=== PATIENT | male | born 1975 | race Caucasian/White ===

== ENCOUNTER 2019-01-28 03:44 | Observation (INO) | payer OTHER ==
[~2019-01-28] VITALS: Ht 188 cm; Wt 96.2 kg
[2019-01-28] MEDS ORDERED: IV NORMAL SALINE 1,000ML 1,000 ML IV SCH ×2 (03:58→06:00)
[2019-01-28] MEDS ORDERED: diphenhydrAMINE 50 MG/ML VIAL IVP ONE (04:00)
[2019-01-28] MEDS ORDERED: METOCLOPRAMIDE HCL 10 MG/2 ML VIAL. IV ONE (04:00)
[2019-01-28] MEDS ORDERED: MORPHINE SULFATE 4 MG/ML DISP.SYRIN. IV/SQ PRN (04:00)
[2019-01-28 04:18] LABS: BASO # 0.1 x10^3/uL (0.0-0.2); BASO % 1 % (0-3); EOS # 0.1 x10^3/uL (0.0-0.7); EOS % 1 % (0-3); HEMATOCRIT 47.3 % (39.0-53.0); HEMOGLOBIN 16.6 g/dL (13.0-17.5); LYMPH # 1.7 x10^3/uL (1.0-4.8); LYMPH % 17 % (24-48); MEAN CORPUSCULAR HEMOGLOBIN 30 pg (25-35); MEAN CORPUSCULAR HGB CONC 35 g/dL (31-37); MEAN CORPUSCULAR VOLUME 86 fL (79-100); MONO # 0.7 x10^3/uL (0.0-1.1); MONO % 7 % (0-9); NEUT # 7.8 x10^3uL (1.8-7.7); NEUT % 75 % (31-73); PLATELET COUNT 269 x10^3/uL (140-400); RED BLOOD COUNT 5.52 x10^6/uL (4.30-5.70); RED CELL DISTRIBUTION WIDTH 14.2 % (11.5-14.5); WHITE BLOOD COUNT 10.4 x10^3/uL (4.0-11.0)
[2019-01-28 04:38] LABS: ALBUMIN 4.2 g/dL (3.4-5.0); ALBUMIN/GLOBULIN RATIO 1.1 (1.0-1.7); CALCIUM 9.2 mg/dL (8.5-10.1); CREATININE 0.9 mg/dL (0.7-1.3); GFR 92.1; POTASSIUM 3.2 mmol/L (3.5-5.1); TOTAL BILIRUBIN 0.5 mg/dL (0.2-1.0); TOTAL PROTEIN 8.1 g/dL (6.4-8.2)
[2019-01-28 04:52] LABS: BACTERIA,URINE 0 /HPF (0-FEW); BILIRUBIN,URINE NEG (NEG); CLARITY,URINE CLEAR; COLOR,URINE YELLOW; GLUCOSE,URINE NEG (NEG); NITRITE,URINE NEG (NEG); RBC,URINE 0 /HPF (0-2); UROBILINOGEN,URINE 0.2 mg/dL (0.2 mg/dL)
[2019-01-28] MEDS ORDERED: IOHEXOL 300 MG/ML 75 ML VIAL. IV ONE (05:15)
[2019-01-28] MEDS ORDERED: CONTRAST GIVEN MC PRN (05:15)
--- NOTE | 2019-01-28 05:34 | PHYS DOC ---
Past History Past Medical History: Anxiety, Arthritis, Fibromyalgia, Other Additional Smoking Information: pt states he "Vapes" and smokes marijuana. Alcohol Use: Heavy Additional Alcohol Information: drinks beer daily Drug Use: Benzodiazepine, Marijuana Adult General Chief Complaint Chief Complaint: NAUSEA/VOMITING/DIARRHEA HPI HPI 43-year-old male who presents with complaint of abdominal pain with nausea and vomiting. Patient states that symptoms have been present for the last 4 days. He states that he has not been able to keep anything down despite prescribed medications. Patient was seen at the [facility] days ago and he was prescribed Zofran , Carafate and Prilosec. Patient states that he is not able to keep any of the medication down despite taking nausea medication. He rates the pain in his abdomen at an 8 out of 10 and describes it as crampy. He states that he does not recall the last time he had a bowel movement. He states that he is passing a small amount of gas but not very frequently. He denies any history of abdominal surgeries. Patient states that symptoms are worsened if he tries to eat or drink anything. He states that nothing improves his symptoms. Review of Systems Review of Systems Constitutional: Denies fever or chills [] Respiratory: Denies cough or shortness of breath [] Cardiovascular: No additional information not addressed in HPI [] GI: Complains of abdominal pain with nausea and vomiting. Denies diarrhea [] Integument: Denies rash or skin lesions [] Neurologic: Denies headache, focal weakness or sensory changes [] All other systems were reviewed and found to be within normal limits, except as documented in this note. Current Medications Current Medications Current Medications Medications (Trade) Dose Ordered Sig/Paula Start Time Stop Time Status Last Admin Dose Admin Diphenhydramine HCl (Benadryl) 25 mg 1X ONCE 01/28/19 04:00 01/28/19 04:41 DC 01/28/19 04:08 25 MG Info (Do NOT chart on this entry -- for MONITORING) 1 each PRN DAILY PRN 01/28/19 05:15 01/30/19 05:14 Iohexol (Omnipaque 300 Mg/ml) 75 ml 1X ONCE 01/28/19 05:15 01/28/19 05:16 DC 01/28/19 05:15 75 ML Metoclopramide HCl (Reglan Vial) 10 mg 1X ONCE 01/28/19 04:00 4/22/19 04:41 DC 01/28/19 04:08 10 MG Morphine Sulfate (Morphine 4mg Syringe) 4 mg PRN Q15MIN PRN 01/28/19 04:00 01/29/19 03:59 01/28/19 04:09 4 MG Sodium Chloride 1,000 ml @ 1,000 mls/hr Q1H 01/28/19 03:58 01/28/19 04:57 DC 01/28/19 04:05 1,000 MLS/HR Allergies Allergies Allergies Coded Allergies Type Severity Reaction Last Updated Verified No Known Drug Allergies 01/28/19 No Physical Exam Physical Exam Constitutional: Well developed, well nourished, no acute distress, non-toxic appearance. [] HENT: Normocephalic, atraumatic, bilateral external ears normal, oropharynx moist, no oral exudates, nose normal. [] Eyes: PERRLA, EOMI, conjunctiva normal, no discharge. [] Neck: Normal range of motion, no tenderness, supple, no stridor. [] Cardiovascular:Heart rate regular rhythm, no murmur [] Lungs & Thorax: Bilateral breath sounds clear to auscultation [] Abdomen: Bowel sounds normal, soft with diffuse tenderness. [] Skin: Warm, dry, no erythema, no rash. [] Extremities: No tenderness, no cyanosis, no clubbing, ROM intact, no edema. [] Neurologic: Alert and oriented X 3, no focal deficits noted. [] Current Patient Data Vital Signs Vital Signs Date Time Temp Pulse Resp B/P (MAP) Pulse Ox O2 Delivery O2 Flow Rate FiO2 01/28/19 04:09 18 98 Room Air 01/28/19 03:53 98.2 88 Lab Results Laboratory Tests Test 01/28/19 04:00 01/28/19 04:25 White Blood Count 10.4 x10^3/uL (4.0-11.0) Red Blood Count 5.52 x10^6/uL (4.30-5.70) Hemoglobin 16.6 g/dL (13.0-17.5) Hematocrit 47.3 % (39.0-53.0) Mean Corpuscular Volume 86 fL (79-100) Mean Corpuscular Hemoglobin 30 pg (25-35) Mean Corpuscular Hemoglobin Concent 35 g/dL (31-37) Red Cell Distribution Width 14.2 % (11.5-14.5) Platelet Count 269 x10^3/uL (140-400) Neutrophils (%) (Auto) 75 % (31-73) H Lymphocytes (%) (Auto) 17 % (24-48) L Monocytes (%) (Auto) 7 % (0-9) Eosinophils (%) (Auto) 1 % (0-3) Basophils (%) (Auto) 1 % (0-3) Neutrophils # (Auto) 7.8 x10^3uL (1.8-7.7) H Lymphocytes # (Auto) 1.7 x10^3/uL (1.0-4.8) Monocytes # (Auto) 0.7 x10^3/uL (0.0-1.1) Eosinophils # (Auto) 0.1 x10^3/uL (0.0-0.7) Basophils # (Auto) 0.1 x10^3/uL (0.0-0.2) Sodium Level 136 mmol/L (136-145) Potassium Level 3.2 mmol/L (3.5-5.1) L Chloride Level 96 mmol/L (98-107) L Carbon Dioxide Level 24 mmol/L (21-32) Anion Gap 16 (6-14) H Blood Urea Nitrogen 14 mg/dL (8-26) Creatinine 0.9 mg/dL (0.7-1.3) Estimated GFR (Cockcroft-Gault) 92.1 BUN/Creatinine Ratio 16 (6-20) Glucose Level 103 mg/dL (70-99) H Calcium Level 9.2 mg/dL (8.5-10.1) Total Bilirubin 0.5 mg/dL (0.2-1.0) Aspartate Amino Transferase (AST) 14 U/L (15-37) L Alanine Aminotransferase (ALT) 22 U/L (16-63) Alkaline Phosphatase 73 U/L (46-116) Total Protein 8.1 g/dL (6.4-8.2) Albumin 4.2 g/dL (3.4-5.0) Albumin/Globulin Ratio 1.1 (1.0-1.7) Lipase 229 U/L (73-393) Urine Collection Type Unknown Urine Color Yellow Urine Clarity Clear Urine pH 6.0 Urine Specific [place] 1.020 Urine Protein 30 mg/dl (NEG-TRACE) Urine Glucose (UA) Neg mg/dL (NEG) Urine Ketones (Stick) >=160 mg/dL (NEG) Urine Blood Neg (NEG) Urine Nitrite Neg (NEG) Urine Bilirubin Neg (NEG) Urine Urobilinogen Dipstick 0.2 mg/dL (0.2 mg/dL) Urine Leukocyte Esterase Neg (NEG) Urine RBC 0 /HPF (0-2) Urine WBC 1-4 /HPF (0-4) Urine Squamous Epithelial Cells None /LPF Urine Bacteria 0 /HPF (0-FEW) Urine Mucus Slight /LPF EKG EKG [] Radiology/Procedures Radiology/Procedures [] Course & Med Decision Making Course & Med Decision Making Pertinent Labs and Imaging studies reviewed. (See chart for details) [] Dragon Disclaimer Dragon Disclaimer This electronic medical record was generated, in whole or in part, using a voice recognition dictation system. Departure Departure: Impression: Primary Impression: Intractable vomiting Additional Impression: Generalized abdominal pain Disposition: ADMITTED INPATIENT Admitting Physician: Wong Sevilla Condition: IMPROVED Referrals: SHYLA COLBERT MD (PCP) Problem Qualifiers Primary Impression: Intractable vomiting Vomiting type: unspecified Nausea presence: with nausea Qualified Codes: R11.2 - Nausea with vomiting, unspecified AYLIN BENZ Jr. DO Jan 28, 2019 05:34
[2019-01-28] MEDS ORDERED: ONDANSETRON PF 4 MG/2 ML VIAL. IV PRN (06:00)
[2019-01-28] MEDS ORDERED: MORPHINE SULFATE 4 MG/ML DISP.SYRIN. IV PRN (06:00)
[2019-01-28] MEDS ORDERED: ONDANSETRON PF 4 MG/2 ML VIAL. IV ONE (06:00)
--- NOTE | 2019-01-28 06:04 | RAD ---
INDICATION: N/V, DIFFUSE ABDOMINAL PAIN
GAVE OMNI 300 75ML IV
HX: GERD COMPARISON: None. TECHNIQUE: Axial CT images obtained through the abdomen and pelvis with contrast. One or more of the following individualized dose reduction techniques were utilized for this examination: 1. Automated exposure control; 2. Adjustment of the mA and/or kV according to patient size; 3. Use of iterative reconstruction technique. FINDINGS: Abdominal aorta is not aneurysmal. Scattered calcified plaque. Small fat-containing umbilical hernia. Small fat-containing left inguinal hernia. No worrisome hepatic mass. No peripancreatic fluid collection. Spleen unremarkable. Urinary bladder is partially distended at time of exam. Mildly prominent bilateral extrarenal pelvis without radiopaque obstructive ureter stone. Prostate calcification. No periappendiceal inflammation. No dilated loops of bowel to suggest obstruction. There is some degenerative changes of the spine. IMPRESSION: 1. No evidence of bowel obstruction or appendicitis. Electronically signed by: Noble Jacome MD (01/28/2019 6:01 AM) [facility]
[2019-01-28 08:24] VITALS: BP 153/113
[2019-01-28] MEDS ORDERED: TRAZ-86 PO (10:22)
[2019-01-28] MEDS ORDERED: PREG100C PO (10:22)
[2019-01-28] MEDS ORDERED: OMEP40CA5 PO (10:22)
[2019-01-28] MEDS ORDERED: HYDR25TA PO (10:22)
[2019-01-28] MEDS ORDERED: CHOL10003 PO (10:22)
[2019-01-28] MEDS ORDERED: ACET500T68 PO (10:22)
[2019-01-28] MEDS ORDERED: LAMO150T2 PO (10:22)
[2019-01-28] MEDS ORDERED: FERR325T14 PO (10:22)
[2019-01-28] MEDS ORDERED: ATOR40TA59 PO (10:22)
[2019-01-28] MEDS ORDERED: CETI10TA16 PO (10:22)
[2019-01-28] MEDS ORDERED: CLON1TAB PO (10:22)
[2019-01-28] MEDS ORDERED: CYCL-331 PO (10:22)
[2019-01-28] MEDS ORDERED: ARIP15TA36 PO (10:22)
[2019-01-28] MEDS ORDERED: NAPR-514 PO (10:22)
[2019-01-28 11:07] VITALS: BP 122/92
[2019-01-28 15:10] VITALS: BP 132/96
--- NOTE | 2019-01-28 15:41 | HP ---
ADMIT DATE: 01/28/2019 HISTORY OF PRESENT ILLNESS: The patient is a 43-year-old male patient, who came to the Emergency Room, complaining of intractable nausea and vomiting. His complaints started about last . He apparently was seen at the [facility], was given 2 liters of normal saline as well as omeprazole, Zofran and Carafate, was discharged home. On Monday, he started having severe headache that continued the whole day until Monday. He has not been able to keep anything by mouth. When I asked him specifically, he denied any diarrhea, but did complain of abdominal pain. Denied any dizziness, lightheadedness, or vertigo. Denied any chills, rigors or fever. The pain is mostly in epigastric area, does not radiate through and through to the back. He was extensively investigated in the Emergency Room and apart from hypokalemia, all his lab works are within acceptable range. The patient was admitted for rehydration and symptomatic treatment. PAST MEDICAL HISTORY: Significant for gastroesophageal reflux disease, hypertension, emphysema, hyperlipidemia, osteoarthritis, fibromyalgia, anxiety and depression and post-traumatic stress disorder. He has also organic brain syndrome. PAST SURGICAL HISTORY: Significant for esophagogastroduodenoscopy and colonoscopy done by Dr. Wynne. MEDICATIONS: He is currently on following medications: He is on cetirizine 10 mg once a day, cyclobenzaprine 10 mg 4 times a day, ferrous sulfate 325 mg twice a day, atorvastatin calcium 40 mg at bedtime. He is on naproxen 500 mg twice a day, Tylenol 1000 mg twice a day, clonazepam 1 mg 4 times a day, lamotrigine 150 mg p.o. b.i.d., pregabalin 100 mg 3 times a day, trazodone 100 mg at bedtime, Abilify 15 mg daily. He is on hydroxyzine 25 mg, he takes 2 tablets 4 times a day; omeprazole 40 mg twice a day and cholecalciferol vitamin D3 2000 international unit once a day. FAMILY HISTORY: His father was diseased at the age of 67 because of metastatic lung cancer. Mother is still alive. She has diabetes, hypertension, hyperlipidemia and skin cancer that was treated surgically. SOCIAL HISTORY: He is , has 3 children from previous marriages. He drinks 30-pack of alcohol a month. He drinks whiskey and average one beer a day. He smokes marijuana. He said he buys 2 grams and smokes only the first 2 weeks. REVIEW OF SYSTEMS: The patient denied any blurring of vision, cataract, glaucoma or macular degeneration. Denied any earache, tinnitus or sensorineural deafness. Denied any nosebleeds, stuffy nose or postnasal drip. Denied any sore throat, sore tongue, toothache, hoarseness of voice or difficulty swallowing. He did complain of nausea and vomiting. Denied any diarrhea or constipation. Denied any hematemesis, melena or hematochezia. Denied any dysuria, frequency or hematuria. Denied any chest pain, shortness of breath, orthopnea or paroxysmal nocturnal dyspnea. Denied any cough, phlegm or hemoptysis. Denied any chills, rigors, or fever. Denied any dizziness, lightheadedness, or vertigo. PHYSICAL EXAMINATION: GENERAL: On arrival to the Emergency Room, he apparently looked well and was clearly in no apparent respiratory distress. There was no pallor, jaundice, cyanosis or thyromegaly. No jugular venous distension. No lower limb edema. VITAL SIGNS: On arrival to the Emergency Room this morning, his heart rate was 88, blood pressure was 157/100, temperature was 98, respiratory rate was 18 and oxygen saturation was 98% on room air. HEAD, EYES, EARS, NOSE AND THROAT: Showed normocephalic, atraumatic. NECK: Supple. HEART: Showed normal first and second heart sounds. No gallop, rub or murmur. CHEST: Clear to auscultation. No crepitation or rhonchi. ABDOMEN: Distended, soft, nontender. No guarding or rigidity. No organomegaly. All hernial orifices intact. Bowel sounds normal. NEUROLOGIC: He was awake, alert, responding appropriately. All cranial nerves intact. EXTREMITIES: He moves extremities without difficulty, ambulates without assistance or assistive devices. LABORATORY DATA: On admission showed that his white cell count was 10,400, hemoglobin 16.6, hematocrit 47, MCV 86 and platelet count 269,000 with normal manual differential. His chemistry showed a serum sodium 136, potassium 3.2, chloride 96, bicarbonate 24, anion gap of 16 and a BUN of 14, creatinine 0.9, estimated GFR was 92 mL per minute, glucose 103, calcium was 9.2. Total bilirubin, AST, ALT, alkaline phosphatase were normal. Total protein was 8.1, albumin was 4.2. His urinalysis was essentially unremarkable. IMPRESSION: In summary, this is a 43-year-old male patient who came with intractable nausea and vomiting. He apparently has had also severe headache, which he was seen at the [facility] and had a CT scan of the head was unremarkable. He apparently uses marijuana. He uses naproxen and also drinks at least 1 can of beer every day, which might combination of all these can cause upper GI acute gastritis. PLAN: To continue with IV fluid. Obviously, he has hypokalemia that needs to be replenished. We will continue with the IV Protonix and start him on a clear liquid diet and advanced his diet as tolerated. MARITZA SARABIA MD DR: GUILLERMO/félix JOB#: [id number] / [id number]
[2019-01-28] MEDS ORDERED: NON FORMULARY ITEM (Omeprazole 1 CAP) PO SCH (16:30)
[2019-01-28] MEDS ORDERED: NICOTINE 21MG PATCH. TD SCH (17:00)
[2019-01-28] MEDS: CYCLOBENZAPRINE 10 MG TABLET. PO SCH ×2 (17:00→21:31)
[2019-01-28] MEDS: hydrOXYzine HCL 25 MG TABLET PO SCH ×2 (17:00→21:31)
[2019-01-28] MEDS: clonazePAM 1 MG TABLET PO SCH ×2 (17:16→21:31)
[2019-01-28] MEDS: POTASSIUM CL 40MEQ D5-0.45NACL 1,000 ML IV SCH (17:17)
[2019-01-28 19:51] VITALS: BP 150/91
[2019-01-28] MEDS ORDERED: ATORVASTATIN CALCIUM 20 MG TABLET PO SCH (21:00)
[2019-01-28] MEDS ORDERED: ACETAMINOPHEN 500 MG TABLET PO SCH (21:00)
[2019-01-28] MEDS ORDERED: lamoTRIgine 150 MG TABLET. PO SCH (21:00)
[2019-01-28] MEDS ORDERED: traZODone 100 MG TABLET. PO SCH (21:00)
[2019-01-28] MEDS: PREGABALIN 50 MG CAPSULE PO SCH (21:30)
[2019-01-28] MEDS: lamoTRIgine 100 MG TABLET. PO SCH (21:31)
[2019-01-28] MEDS: FERROUS SULFATE 325 MG TABLET. PO SCH (21:32)
[2019-01-28] MEDS: ACETAMINOPHEN 500 MG TABLET PO SCH (22:11)
[2019-01-28 23:02] VITALS: BP 146/92
[2019-01-29] MEDS: POTASSIUM CL 40MEQ D5-0.45NACL 1,000 ML IV SCH (03:31)
[2019-01-29 05:42] VITALS: BP 164/94
[2019-01-29 06:43] LABS: HEMATOCRIT 41.7 % (39.0-53.0); HEMOGLOBIN 14.3 g/dL (13.0-17.5); RED BLOOD COUNT 4.82 x10^6/uL (4.30-5.70); RED CELL DISTRIBUTION WIDTH 14.3 % (11.5-14.5)
[2019-01-29 06:51] LABS: ALBUMIN 3.1 g/dL (3.4-5.0); CALCIUM 8.3 mg/dL (8.5-10.1); CREATININE 0.8 mg/dL (0.7-1.3); GFR 105.5; POTASSIUM 3.7 mmol/L (3.5-5.1); TOTAL BILIRUBIN 0.4 mg/dL (0.2-1.0); TOTAL PROTEIN 6.3 g/dL (6.4-8.2)
[2019-01-29] MEDS ORDERED: PANTOPRAZOLE IV 40 MG VIAL. IVP SCH (07:30)
[2019-01-29] MEDS: hydrOXYzine HCL 25 MG TABLET PO SCH ×2 (08:28→13:20)
[2019-01-29] MEDS: clonazePAM 1 MG TABLET PO SCH ×2 (08:29→13:00)
[2019-01-29] MEDS: CYCLOBENZAPRINE 10 MG TABLET. PO SCH ×2 (08:29→13:20)
[2019-01-29] MEDS: FERROUS SULFATE 325 MG TABLET. PO SCH (08:29)
[2019-01-29] MEDS: PREGABALIN 50 MG CAPSULE PO SCH ×2 (08:29→13:21)
[2019-01-29] MEDS: lamoTRIgine 100 MG TABLET. PO SCH (08:30)
[2019-01-29] MEDS: ACETAMINOPHEN 500 MG TABLET PO SCH (08:37)
[2019-01-29] MEDS ORDERED: CETIRIZINE HCL 10 MG TABLET PO SCH (09:00)
[2019-01-29] MEDS ORDERED: CHOLECALCIFEROL (VITAMIN D3) 1,000 UNIT TABLET PO SCH (09:00)
[2019-01-29 11:00] VITALS: BP 130/86
[2019-01-29] MEDS ORDERED: ARIPiprazole 15 MG TABLET PO SCH (11:30)
--- NOTE | 2019-01-29 14:03 | DS ---
DATE OF DISCHARGE: 01/28/2019 HOSPITAL COURSE: The patient is a 43-year-old male patient, who was admitted to the Emergency Room with intractable nausea and vomiting. He also complained of abdominal pain. We did start him on IV fluid and antiemetics and start him on clear liquid diet that has been gradually advanced. He did have a regular breakfast and lunch today without any problem. He has no further nausea and vomiting, no abdominal pain. He has bowel movement and generally feeling much better and ready to be discharged home. PHYSICAL EXAMINATION: GENERAL: When I examined him this afternoon, he looked well and was clearly in no apparent respiratory distress. No pallor, jaundice, cyanosis or thyromegaly. No jugular venous distention. No limb edema. VITAL SIGNS: His heart rate was 100, blood pressure was 130/86, temperature was 97.5, respiratory rate was 18 and oxygen saturation was 97%. HEAD, EYES, EARS, NOSE AND THROAT: Showed normocephalic, atraumatic. NECK: Supple. HEART: Showed normal first and second heart sounds with no gallop, rub or murmur. CHEST: Clear to auscultation. No crepitation or rhonchi. ABDOMEN: Distended, soft, nontender. No guarding or rigidity. No organomegaly. All hernial orifice intact. Bowel sounds normal. NEUROLOGIC: He is awake, alert, responding appropriately. All cranial nerves intact. He moves extremities without difficulty. He ambulates without assistance or assistive devices. His intake over the last 24 hours was 1000, no output was recorded. LABORATORY DATA: His lab work this morning showed his white cell count was 5000, hemoglobin 14, hematocrit 41, MCV 87, and platelet count 208,000. His chemistry showed a serum sodium 140, potassium 3.7, chloride 105, bicarbonate 26, anion gap of 9, BUN 6, creatinine 0.8, estimated GFR was 105, glucose was 106, calcium was 8.3. Total bilirubin, AST, ALT, alkaline phosphatase were normal. Total protein was 6.3, albumin 3.1, lipase 135. DISCHARGE MEDICATIONS: The patient was discharged home to continue on his Tylenol 1000 mg twice a day, mg daily, atorvastatin calcium 40 mg at bedtime, cetirizine 10 mg daily, cholecalciferol for vitamin D3 2000 international unit once a day, clonazepam 1 mg 4 times a day, cyclobenzaprine 10 mg 4 times a day, ferrous sulfate 325 mg twice a day, hydroxyzine 25 mg 2 tablets 4 times a day, lamotrigine 150 mg p.o. b.i.d., naproxen 500 mg twice a day, omeprazole 40 mg twice a day, pregabalin for Lyrica 100 mg 3 times a day, trazodone 100 mg at bedtime. FINAL DISCHARGE DIAGNOSES: Recurrent bouts of nausea and vomiting, resolved; dehydration and hypokalemia, resolved; gastroesophageal reflux disease, hypertension, chronic obstructive pulmonary disease, hyperlipidemia, osteoarthritis, fibromyalgia, anxiety and depression. MARITZA SARABIA MD DR: GUILLERMO/félix JOB#: [id number] / [id number]
[2019-01-29 15:25] VITALS: BP 134/88
== END 2019-01-29 16:30 | disposition home or self-care (01) ==
LOC: ER 03:44 → INTOOBSV 05:51 → 1 SOUTH 05:51 → ER 07:55
PROVIDERS: ADMIT Internal Medicine; ATTEND Internal Medicine
DX: R11.2 Nausea with vomiting, unspecified (principal); F41.9 Anxiety disorder, unspecified; M19.90 Unspecified osteoarthritis, unspecified site; M79.7 Fibromyalgia; F12.90 Cannabis use, unspecified, uncomplicated; R10.84 Generalized abdominal pain; R51 Headache; E87.6 Hypokalemia; K21.9 Gastro-esophageal reflux disease without esophagitis; I10 Essential (primary) hypertension; E78.5 Hyperlipidemia, unspecified; F32.9 Major depressive disorder, single episode, unspecified; J43.9 Emphysema, unspecified; F43.10 Post-traumatic stress disorder, unspecified; F09 Unspecified mental disorder due to known physiological condition; Z80.8 Family history of malignant neoplasm of other organs or systems; Z82.49 Family history of ischemic heart disease and other diseases of the circulatory system; Z83.3 Family history of diabetes mellitus
CPT/HCPCS: 36415; 74177; 80053; 81001; 83690; 85025; 85027; 96361; 96365; 96366; 96372; 96375; 99284; C9113; G0378; J1200; J2270; J2765; J7042; Q9967; G0379; J7030

== ENCOUNTER 2019-04-30 21:42 | Inpatient (IN) | payer OTHER ==
[~2019-04-30] VITALS: Ht 188 cm; Wt 87.7 kg
[~2019-04-30 21:42] MED LIST: ACET500T68 PO; ARIP15TA36 PO; ATOR40TA59 PO; CETI10TA16 PO; CHOL10003 PO; CLON1TAB PO; CYCL-331 PO; FERR325T14 PO; HYDR25TA PO; LAMO150T2 PO; NAPR-514 PO; OMEP40CA5 PO; PREG100C PO; TRAZ-86 PO
[2019-04-30] MEDS ORDERED: IV NORMAL SALINE 1,000ML 1,000 ML IV SCH (22:30)
[2019-04-30] MEDS ORDERED: METOCLOPRAMIDE HCL 10 MG/2 ML VIAL. IV ONE (22:30)
[2019-04-30] MEDS ORDERED: diphenhydrAMINE 50 MG/ML VIAL IVP ONE (22:30)
[2019-04-30] MEDS ORDERED: FAMOTIDINE 20 MG/2 ML VIAL IVP ONE (22:30)
[2019-04-30 23:09] LABS: BASO # 0.1 x10^3/uL (0.0-0.2); BASO % 1 % (0-3); EOS # 0.2 x10^3/uL (0.0-0.7); EOS % 1 % (0-3); HEMATOCRIT 48.8 % (39.0-53.0); HEMOGLOBIN 16.6 g/dL (13.0-17.5); LYMPH # 2.1 x10^3/uL (1.0-4.8); LYMPH % 16 % (24-48); MEAN CORPUSCULAR HEMOGLOBIN 31 pg (25-35); MEAN CORPUSCULAR HGB CONC 34 g/dL (31-37); MEAN CORPUSCULAR VOLUME 90 fL (79-100); MONO # 1.1 x10^3/uL (0.0-1.1); MONO % 8 % (0-9); NEUT # 9.9 x10^3uL (1.8-7.7); NEUT % 74 % (31-73); PLATELET COUNT 271 x10^3/uL (140-400); RED BLOOD COUNT 5.44 x10^6/uL (4.30-5.70); RED CELL DISTRIBUTION WIDTH 13.9 % (11.5-14.5); WHITE BLOOD COUNT 13.3 x10^3/uL (4.0-11.0)
[2019-04-30 23:13] LABS: BARBITURATES NEG (NEG); BENZODIAZEPINES POS (NEG); CANNABINOIDS POS (NEG); COCAINE NEG (NEG); METHADONE NEG (NEG); OPIATES POS (NEG); PHENCYCLIDINE NEG (NEG)
[2019-04-30 23:14] LABS: AMPHETAMINE/METHAMPHETAMINE NEG (NEG)
[2019-04-30 23:18] LABS: ALBUMIN 4.5 g/dL (3.4-5.0); ALBUMIN/GLOBULIN RATIO 1.2 (1.0-1.7); CALCIUM 10.2 mg/dL (8.5-10.1); CREATININE 1.1 mg/dL (0.7-1.3); GFR 73.1; POTASSIUM 3.3 mmol/L (3.5-5.1); TOTAL BILIRUBIN 0.4 mg/dL (0.2-1.0); TOTAL PROTEIN 8.2 g/dL (6.4-8.2)
[2019-04-30 23:20] LABS: BILIRUBIN,URINE NEG (NEG); CLARITY,URINE HAZY; COLOR,URINE AMBER; GLUCOSE,URINE NEG (NEG)
[2019-04-30 23:21] LABS: BACTERIA,URINE MOD /HPF (0-FEW); NITRITE,URINE NEG (NEG); RBC,URINE OCC /HPF (0-2); SQUAMOUS EPITHELIAL CELL,UR OCC /LPF; UROBILINOGEN,URINE 0.2 mg/dL (0.2 mg/dL)
[2019-04-30] MEDS ORDERED: ONDANSETRON PF 4 MG/2 ML VIAL. IV ONE (23:30)
--- NOTE | 2019-04-30 23:36 | PHYS DOC ---
Past History Past Medical History: Anxiety, Arthritis, Depression, Fibromyalgia, Other Alcohol Use: Heavy Additional Alcohol Information: " I was heavy, but now a couple a beers 2-3 times a week" Drug Use: Benzodiazepine, Marijuana Adult General Chief Complaint Chief Complaint: NAUSEA/VOMITING/DIARRHEA HPI HPI Patient is a 43-year-old male who presents with complaint of nausea with vomiting and loose stools since yesterday. Patient states that he has not been able to keep anything down since that time. He also complains of generalized abdominal pain. He is not sure whether or not the pain started before or after onset of the vomiting and diarrhea. He rates pain at a 5 out of 10. He denies any radiation of the pain into his back. He also denies any fever. Patient states that he did have some alcohol prior to onset of symptoms. He denies any chest pain or shortness of breath. He states that symptoms are worsened if he tries to eat or drink anything.[] Review of Systems Review of Systems Constitutional: Denies fever or chills [] Respiratory: Denies cough or shortness of breath [] Cardiovascular: No additional information not addressed in HPI [] GI: Complains of abdominal pain with nausea, vomiting and diarrhea [] Integument: Denies rash or skin lesions [] Neurologic: Denies headache, focal weakness or sensory changes [] All other systems were reviewed and found to be within normal limits, except as documented in this note. Current Medications Current Medications Current Medications Medications (Trade) Dose Ordered Sig/Paula Start Time Stop Time Status Last Admin Dose Admin Diphenhydramine HCl (Benadryl) 25 mg 1X ONCE 04/30/19 22:30 04/30/19 22:31 DC 04/30/19 22:26 25 MG Famotidine (Pepcid Vial) 20 mg 1X ONCE 04/30/19 22:30 04/30/19 22:31 DC 04/30/19 22:26 20 MG Metoclopramide HCl (Reglan Vial) 10 mg 1X ONCE 04/30/19 22:30 04/30/19 22:31 DC 04/30/19 22:25 10 MG Ondansetron HCl (Zofran) 4 mg 1X ONCE 04/30/19 23:30 04/30/19 23:31 DC 04/30/19 23:09 4 MG Sodium Chloride 1,000 ml @ 1,000 mls/hr Q1H 04/30/19 22:30 04/30/19 23:29 DC 04/30/19 22:25 1,000 MLS/HR Allergies Allergies Allergies Coded Allergies Type Severity Reaction Last Updated Verified No Known Drug Allergies 01/28/19 No Physical Exam Physical Exam Constitutional: Well developed, well nourished, no acute distress, non-toxic appearance. [] HENT: Normocephalic, atraumatic, bilateral external ears normal, oropharynx dry, no oral exudates, nose normal. [] Eyes: PERRLA, EOMI, conjunctiva normal, no discharge. [] Neck: Normal range of motion, no tenderness, supple, no stridor. [] Cardiovascular: Mildly tachycardic rate with regular rhythm[] Lungs & Thorax: Bilateral breath sounds clear to auscultation [] Abdomen: Bowel sounds normal, soft, with mild generalized tenderness. [] Skin: Warm, dry, no erythema, no rash. [] Extremities: No tenderness, no cyanosis, no clubbing, ROM intact, no edema. [] Neurologic: Alert and oriented X 3, no focal deficits noted. [] Current Patient Data Vital Signs Vital Signs Date Time Temp Pulse Resp B/P (MAP) Pulse Ox O2 Delivery O2 Flow Rate FiO2 04/30/19 23:05 69 20 142/93 (109) 100 04/30/19 21:56 98.4 Room Air Lab Results Laboratory Tests Test 04/30/19 21:50 04/30/19 22:40 Urine Collection Type Unknown Urine Color Mireya Urine Clarity Hazy Urine pH 6.0 Urine Specific [place] >=1.030 Urine Protein 100 mg/dl (NEG-TRACE) Urine Glucose (UA) Neg mg/dL (NEG) Urine Ketones (Stick) 40 mg/dL (NEG) Urine Blood Neg (NEG) Urine Nitrite Neg (NEG) Urine Bilirubin Neg (NEG) Urine Urobilinogen Dipstick 0.2 mg/dL (0.2 mg/dL) Urine Leukocyte Esterase Neg (NEG) Urine RBC Occ /HPF (0-2) Urine WBC 5-10 /HPF (0-4) Urine Squamous Epithelial Cells Occ /LPF Urine Bacteria Mod /HPF (0-FEW) Urine Mucus Marked /LPF Urine Opiates Screen Pos (NEG) Urine Methadone Screen Neg (NEG) Urine Barbiturates Neg (NEG) Urine Phencyclidine Screen Neg (NEG) Urine Amphetamine/Methamphetamine Neg (NEG) Urine Benzodiazepines Screen Pos (NEG) Urine Cocaine Screen Neg (NEG) Urine Cannabinoids Screen Pos (NEG) Urine Ethyl Alcohol Neg (NEG) White Blood Count 13.3 x10^3/uL (4.0-11.0) H Red Blood Count 5.44 x10^6/uL (4.30-5.70) Hemoglobin 16.6 g/dL (13.0-17.5) Hematocrit 48.8 % (39.0-53.0) Mean Corpuscular Volume 90 fL (79-100) Mean Corpuscular Hemoglobin 31 pg (25-35) Mean Corpuscular Hemoglobin Concent 34 g/dL (31-37) Red Cell Distribution Width 13.9 % (11.5-14.5) Platelet Count 271 x10^3/uL (140-400) Neutrophils (%) (Auto) 74 % (31-73) H Lymphocytes (%) (Auto) 16 % (24-48) L Monocytes (%) (Auto) 8 % (0-9) Eosinophils (%) (Auto) 1 % (0-3) Basophils (%) (Auto) 1 % (0-3) Neutrophils # (Auto) 9.9 x10^3uL (1.8-7.7) H Lymphocytes # (Auto) 2.1 x10^3/uL (1.0-4.8) Monocytes # (Auto) 1.1 x10^3/uL (0.0-1.1) Eosinophils # (Auto) 0.2 x10^3/uL (0.0-0.7) Basophils # (Auto) 0.1 x10^3/uL (0.0-0.2) Sodium Level 141 mmol/L (136-145) Potassium Level 3.3 mmol/L (3.5-5.1) L Chloride Level 101 mmol/L (98-107) Carbon Dioxide Level 24 mmol/L (21-32) Anion Gap 16 (6-14) H Blood Urea Nitrogen 12 mg/dL (8-26) Creatinine 1.1 mg/dL (0.7-1.3) Estimated GFR (Cockcroft-Gault) 73.1 BUN/Creatinine Ratio 11 (6-20) Glucose Level 122 mg/dL (70-99) H Calcium Level 10.2 mg/dL (8.5-10.1) H Total Bilirubin 0.4 mg/dL (0.2-1.0) Aspartate Amino Transferase (AST) 14 U/L (15-37) L Alanine Aminotransferase (ALT) 20 U/L (16-63) Alkaline Phosphatase 96 U/L (46-116) Total Protein 8.2 g/dL (6.4-8.2) Albumin 4.5 g/dL (3.4-5.0) Albumin/Globulin Ratio 1.2 (1.0-1.7) Lipase 1045 U/L (73-393) H EKG EKG [] Radiology/Procedures Radiology/Procedures [] Course & Med Decision Making Course & Med Decision Making Pertinent Labs and Imaging studies reviewed. (See chart for details) [] Dragon Disclaimer Dragon Disclaimer This electronic medical record was generated, in whole or in part, using a voice recognition dictation system. Departure Departure: Impression: Primary Impression: Intractable vomiting with nausea Additional Impression: Acute pancreatitis Disposition: ADMITTED INPATIENT Admitting Physician: Wong Sevilla Condition: IMPROVED Referrals: SHYLA COLBERT MD (PCP) Problem Qualifiers Primary Impression: Intractable vomiting with nausea Vomiting type: unspecified Qualified Codes: R11.2 - Nausea with vomiting, unspecified Additional Impression: Acute pancreatitis Pancreatitis type: alcohol induced Acute pancreatitis complication: unspecified Qualified Codes: K85.20 - Alcohol induced acute pancreatitis without necrosis or infection AYLIN BENZ Jr. DO Apr 30, 2019 23:35
[2019-04-30] MEDS ORDERED: HYDROmorphone PF 1 MG/ML DISP.SYRIN IV PRN (23:45)
[2019-05-01] MEDS ORDERED: HYDROmorphone PF 1 MG/ML DISP.SYRIN IV ONE
[2019-05-01] MEDS ORDERED: METOCLOPRAMIDE HCL 10 MG/2 ML VIAL. IV ONE
[2019-05-01] MEDS ORDERED: IV NORMAL SALINE 1,000ML 1,000 ML IV SCH
[2019-05-01 01:19] VITALS: BP 144/91
[2019-05-01 07:15] VITALS: BP 144/92
[2019-05-01] MEDS: ONDANSETRON PF 4 MG/2 ML VIAL. IV PRN ×2 (08:16→13:54)
[2019-05-01] MEDS: METOCLOPRAMIDE HCL 10 MG/2 ML VIAL. IV PRN (09:08)
[2019-05-01 09:14] LABS: BASO % 0 % (0-3); EOS % 0 % (0-3); HEMATOCRIT 44.1 % (39.0-53.0); HEMOGLOBIN 14.9 g/dL (13.0-17.5); LYMPH # 1.3 x10^3/uL (1.0-4.8); LYMPH % 14 % (24-48); MEAN CORPUSCULAR HEMOGLOBIN 30 pg (25-35); MEAN CORPUSCULAR HGB CONC 34 g/dL (31-37); MEAN CORPUSCULAR VOLUME 90 fL (79-100); MONO # 0.7 x10^3/uL (0.0-1.1); MONO % 7 % (0-9); NEUT # 7.7 x10^3uL (1.8-7.7); NEUT % 79 % (31-73); PLATELET COUNT 242 x10^3/uL (140-400); RED CELL DISTRIBUTION WIDTH 13.8 % (11.5-14.5); WHITE BLOOD COUNT 9.7 x10^3/uL (4.0-11.0)
[2019-05-01 09:22] LABS: CALCIUM 9.1 mg/dL (8.5-10.1); GFR 81.6; POTASSIUM 3.9 mmol/L (3.5-5.1)
[2019-05-01 10:40] VITALS: BP 151/97
[2019-05-01] MEDS: IV NORMAL SALINE 1,000ML 1,000 ML IV SCH ×2 (13:55→19:30)
[2019-05-01 14:25] VITALS: BP 129/88
--- NOTE | 2019-05-01 15:03 | HP ---
ADMIT DATE: HISTORY OF PRESENT ILLNESS: The patient is a 43-year-old male patient who came to the Emergency Room with complaining of recurrent bouts of nausea, vomiting and diarrhea. He stated the diarrhea started about 3 days ago and he started having nausea, vomiting last night. He did also complain of abdominal pain, mostly in the lower abdomen. He apparently rated his pain as 5/10. Denied any hematemesis, melena or hematochezia. His pain is mostly in the lower abdomen. He denied any radiation to the back. He denied any fevers, chills or rigors. He did drink Mely beer in half prior to the onset of symptoms. Denied any chest pain or shortness of breath. The symptoms are worsened if he tries to eat or drink anything. He also has smoked marijuana yesterday. He was evaluated in the Emergency Room and was found to have mild leukocytosis and he was also mildly hypokalemic. His toxic screen was positive for opiates, benzodiazepine, and cannabinoid. Urinalysis was essentially unremarkable. The patient was admitted for rehydration. His lab work also showed that he has acute pancreatitis with serum lipase of more than 1000. He was kept n.p.o., continue the IV fluid, IV pain medication and antiemetic. PAST MEDICAL HISTORY: Significant for gastroesophageal reflux disease, hypertension, emphysema, hyperlipidemia, osteoarthritis, fibromyalgia, anxiety, depression and posttraumatic stress disorder. He also has organic brain syndrome. PAST SURGICAL HISTORY: Significant for esophagogastroduodenoscopy and colonoscopy done by Dr. Wynne. ALLERGIES: He has no known drug allergies. MEDICATIONS: He is currently on following medications; cetirizine 10 mg once a day, Flexeril 10 mg 4 times a day, ferrous sulfate 325 mg twice a day, atorvastatin calcium 40 mg at bedtime, naproxen 500 mg twice a day, acetaminophen 1000 mg twice a day, clonazepam 1 mg p.o. q.i.d., lamotrigine 150 mg p.o. b.i.d., pregabalin for Lyrica 100 mg 3 times a day, trazodone 100 mg at bedtime, Abilify 15 mg daily and hydroxyzine 50 mg 4 times a day, omeprazole 40 mg twice a day, vitamin D 2000 International Units once a day. FAMILY HISTORY: Significant for the fact his father is at the age of 67 because of metastatic lung cancer. Mother is still alive. She has diabetes, hypertension, hyperlipidemia, skin cancer that was treated surgically. SOCIAL HISTORY: He is , has 3 children from previous marriage. He drinks 30-pack of alcohol a month. He drinks whiskey and an average of beer a day. He smokes marijuana. He said that he buys 2 grams, smokes only the first 2 weeks. REVIEW OF SYSTEMS: As per history of present illness. PHYSICAL EXAMINATION GENERAL: When I examined him, he was resting slightly, propped up in bed, in no apparent respiratory distress. No pallor, jaundice, cyanosis, or thyromegaly. No jugular venous distension. No lower limb edema. VITAL SIGNS: His heart rate was 58, blood pressure was 142/93, temperature was 98.4, respiratory rate was 22 and oxygen saturation was 99% on room air. HEAD, EYES, EARS, NOSE AND THROAT: Showed normocephalic, atraumatic. NECK: Supple. HEART: Showed normal first and second heart sounds. No gallop, rub or murmur. CHEST: Clear to auscultation. No crepitation or rhonchi. ABDOMEN: Distended, soft, nontender. No guarding or rigidity. No organomegaly. All hernial orifice intact. Bowel sounds normal. NEUROLOGIC: He was awake, alert, responding appropriately. All cranial nerves intact. EXTREMITIES: He moves extremities without difficulty. He ambulates without assistance or assistive devices. LABORATORY DATA: His lab work on admission showed a serum sodium 141, potassium 3.3, chloride 101, bicarbonate 24, anion gap of 16, BUN 12, creatinine 1.1, estimated GFR was 73 mL per minute, his glucose 122, calcium was 10.2. Total bilirubin, AST, ALT, alkaline phosphatase were normal. Total protein was 8.2, albumin was 4.5. Serum lipase was 1045. His white cell count was 13,300, hemoglobin 16.6, hematocrit 48.8, MCV 90 and platelet count of 271,000. Urinalysis was essentially unremarkable and showed the urine was jody, hazy with a pH of 6, specific gravity of 1.030. There was large amount of protein, negative for glucose, large amount of ketones, negative for blood, nitrite and leukocyte esterase with occasional rbc's, 5-10 wbc's, moderate amount of bacteria. His urine toxicology screen was positive for opiates, benzodiazepine, and cannabinoids. ASSESSMENT AND PLAN: The patient was admitted with recurrent bouts of nausea, vomiting and diarrhea together with acute pancreatitis. The patient was kept n.p.o., continued on IV fluids, IV pain medication and antiemetic. We will monitor his lab work closely and decide on further management accordingly. MARITZA SARABIA MD DR: GUILLERMO/félix JOB#: [id number] / [id number]
[2019-05-01 15:05] LABS: CREATININE 0.8 mg/dL (0.7-1.3); GFR 105.5; POTASSIUM 3.5 mmol/L (3.5-5.1)
[2019-05-01 19:15] VITALS: BP 126/87
[2019-05-01 23:25] VITALS: BP 129/84
[2019-05-01] MEDS: ACETAMINOPHEN 325 MG TABLET PO PRN (23:33)
[2019-05-02] MEDS: IV NORMAL SALINE 1,000ML 1,000 ML IV SCH ×2 (00:26→07:58)
[2019-05-02 05:35] VITALS: BP 124/84
[2019-05-02 06:34] LABS: ALBUMIN 3.3 g/dL (3.4-5.0); ALBUMIN/GLOBULIN RATIO 1.1 (1.0-1.7); CALCIUM 8.6 mg/dL (8.5-10.1); CREATININE 0.7 mg/dL (0.7-1.3); GFR 123.1; POTASSIUM 3.4 mmol/L (3.5-5.1); TOTAL BILIRUBIN 0.3 mg/dL (0.2-1.0); TOTAL PROTEIN 6.3 g/dL (6.4-8.2)
[2019-05-02 06:44] LABS: HEMATOCRIT 43.2 % (39.0-53.0); HEMOGLOBIN 14.6 g/dL (13.0-17.5); RED BLOOD COUNT 4.79 x10^6/uL (4.30-5.70); RED CELL DISTRIBUTION WIDTH 13.7 % (11.5-14.5); WHITE BLOOD COUNT 7.6 x10^3/uL (4.0-11.0)
[2019-05-02] MEDS: ACETAMINOPHEN 325 MG TABLET PO PRN (07:57)
[2019-05-02 10:11] VITALS: BP 126/88
[2019-05-02] MEDS: METOCLOPRAMIDE HCL 10 MG/2 ML VIAL. IV PRN (12:50)
[2019-05-02] MEDS ORDERED: ONDANSETRON PF 4 MG/2 ML VIAL. ONE (14:02)
[2019-05-02] MEDS: ONDANSETRON PF 4 MG/2 ML VIAL. IV PRN ×2 (14:04→19:48)
[2019-05-02] MEDS ORDERED: IOHEXOL 240 MG/ML 50ML VIAL. ONE (14:53)
[2019-05-02] MEDS ORDERED: IOHEXOL 300 MG/ML 75 ML VIAL. IV ONE ×2 (15:15→15:45)
[2019-05-02] MEDS ORDERED: CONTRAST GIVEN MC PRN (15:15)
[2019-05-02 15:17] VITALS: BP 156/89
[2019-05-02] MEDS: POTASSIUM CL 40MEQ D5-0.45NACL 1,000 ML IV SCH ×2 (16:15→23:48)
[2019-05-02] MEDS: PANTOPRAZOLE IV 40 MG VIAL. IVP SCH (16:15)
--- NOTE | 2019-05-02 17:01 | RAD ---
Examination: CT ABD PELV W/ IV CONTRST ONLY History: Diffuse abdominal pain with nausea and vomiting Comparison/Correlation: 01/28/2019 CT abdomen and pelvis with IV contrast Findings: Axial images of the abdomen and pelvis were obtained without and following IV contrast. Sagittal and coronal reformatted images were provided. Initial attempt at scanning following IV contrast was unsuccessful and as result a noncontrast series was acquired. Contrast was then again injected and contrast enhanced series was provided. Visualized lung bases are clear. Liver, spleen, pancreas, adrenal glands, and kidneys are normal. Small hiatal hernia is present. Gallbladder fossa is unremarkable. No radiopaque collecting system calculi. Diverticulosis of the colon is mild. Urinary bladder is unremarkable. No inflammatory changes about cecum. Appendix is normal. Bony structures are unremarkable. Impression: Small hiatal hernia. No acute process. PQRS Compliance Statement: One or more of the following individualized dose reduction techniques were utilized for this examination: 1. Automated exposure control 2. Adjustment of the mA and/or kV according to patient size 3. Use of iterative reconstruction technique Electronically signed by: Jeffry Harper MD (05/02/2019 4:58 PM) [id number]
[2019-05-02] MEDS: METOCLOPRAMIDE HCL 10 MG/2 ML VIAL. IV SCH ×2 (17:42→23:48)
[2019-05-02] MEDS: KETOROLAC 15 MG/ML VIAL. IV PRN ×2 (17:43→23:49)
[2019-05-02 17:44] LABS: ALBUMIN/GLOBULIN RATIO 1.1 (1.0-1.7); CALCIUM 9.3 mg/dL (8.5-10.1); CREATININE 0.8 mg/dL (0.7-1.3); GFR 105.5; POTASSIUM 3.1 mmol/L (3.5-5.1); TOTAL BILIRUBIN 0.4 mg/dL (0.2-1.0); TOTAL PROTEIN 7.5 g/dL (6.4-8.2)
[2019-05-02 19:50] VITALS: BP 146/87
[2019-05-03 05:31] VITALS: BP 126/79
[2019-05-03] MEDS: METOCLOPRAMIDE HCL 10 MG/2 ML VIAL. IV SCH ×2 (05:43→11:56)
[2019-05-03] MEDS: KETOROLAC 15 MG/ML VIAL. IV PRN (05:43)
[2019-05-03] MEDS: PANTOPRAZOLE IV 40 MG VIAL. IVP SCH (07:29)
[2019-05-03] MEDS: ONDANSETRON PF 4 MG/2 ML VIAL. IV PRN (07:37)
[2019-05-03 08:25] LABS: ALBUMIN 3.8 g/dL (3.4-5.0); ALBUMIN/GLOBULIN RATIO 1.1 (1.0-1.7); CALCIUM 9.2 mg/dL (8.5-10.1); CREATININE 0.8 mg/dL (0.7-1.3); GFR 105.5; POTASSIUM 3.3 mmol/L (3.5-5.1); TOTAL BILIRUBIN 0.3 mg/dL (0.2-1.0); TOTAL PROTEIN 7.2 g/dL (6.4-8.2)
[2019-05-03 08:26] LABS: HEMATOCRIT 43.9 % (39.0-53.0); HEMOGLOBIN 14.6 g/dL (13.0-17.5); RED BLOOD COUNT 4.85 x10^6/uL (4.30-5.70)
[2019-05-03 11:01] VITALS: BP 127/83
--- NOTE | 2019-05-03 13:21 | PN ---
DATE: 05/02/2019 SUBJECTIVE: The patient was admitted with recurrent bouts of nausea and vomiting. He apparently claimed that he drinks alcohol only 1 beer a day, although when questioning him further, he said he can go up to 3 or 4, and has been using marijuana and the last time was done also recently and basically we did keep him initially n.p.o. and we started him on a clear liquid diet that he tolerated yesterday. He has acute pancreatitis, likely due to alcohol-induced. This morning, his lipase came down to 134, we decided to advance his diet, and he took 2 to 3 bites and started having violent episode of nausea and vomiting and diffuse abdominal pain and therefore a decision was made to keep him n.p.o. His lab work showed he has hypokalemia and therefore, I did start him on Protonix 40 mg IV daily. We will do a CT scan of the abdomen and pelvis with oral and IV contrast. I will also change his IV fluid to D5 half normal with 40 mEq of potassium chloride. PHYSICAL EXAMINATION: GENERAL: When I saw him this afternoon, he was resting slightly propped up in bed, in no apparent respiratory distress. No pallor, jaundice, cyanosis or thyromegaly. No lower limb edema. VITAL SIGNS: Her heart rate was 67, blood pressure 126/88, temperature was 97.9, respiratory rate was 18 and oxygen saturation was 97%. HEAD, EYES, EARS, NOSE AND THROAT: Normocephalic, atraumatic. NECK: Supple. HEART: Showed normal first and second heart sounds. No gallop, rub or murmur. CHEST: Clear to auscultation. No crepitation or rhonchi. ABDOMEN: Distended, soft. Diffuse tenderness. No guarding or rigidity. No organomegaly. All hernial orifice intact. Bowel sounds normal. NEUROLOGIC: He is awake, alert, responding appropriately. All cranial nerves intact. He moves extremities without difficulty. His intake over the last 24 hours was 750, no output was recorded. LABORATORY DATA: His lab work this morning showed a serum sodium 139, potassium 3.4, chloride 105, bicarbonate 26, anion gap of 8, BUN 5, creatinine 0.7, estimated GFR was 123 mL per minute. His glucose 103, calcium was 8.6. Total bilirubin, AST, ALT, alkaline phosphatase were normal. Total protein 6.3, albumin 3.3. Serum lipase was 134. White cell count of 7600, hemoglobin 14.6, hematocrit 43, MCV 90, and platelet count of 193,000. ASSESSMENT: Recurrent bouts of nausea, vomiting and diarrhea together with acute pancreatitis. His serum lipase came down from more than 1000 to 213. Fortunately, he wants to advance his diet, he started having severe recurrent bouts of nausea, vomiting and diffuse abdominal pain. PLAN: My plan is to keep him n.p.o. Given his hypokalemia, adjust his IV fluid to D5 half normal with 40 mEq of potassium chloride. We will start him on Protonix 40 mg IV. We will repeat his labs stat including CMP, LDH and lipase. We will arrange for him to have CT scan of the abdomen and pelvis with oral and IV contrast and evaluate his response. If he continues to have these symptoms, we might have to transfer [facility] to [facility]. MARITZA SARBAIA MD DR: GUILLERMO/félix JOB#: [id number] / [id number]
[2019-05-03 15:28] VITALS: BP 156/98
[2019-05-03] MEDS ORDERED: ONDA4TAB12 PO (16:14)
--- NOTE | 2019-05-03 17:40 | PN ---
DATE: 05/03/2019 SUBJECTIVE: The patient is sitting at the edge of the bed comfortably, in no apparent distress. He has had no further episodes of nausea or vomiting, no abdominal pain and he is stating that he is hungry. PHYSICAL EXAMINATION: GENERAL: When I examined him, he looked pale, no jaundice, cyanosis, or thyromegaly. No jugular venous distension. No limb edema. VITAL SIGNS: His heart rate was 78, blood pressure was 127/83, temperature was 98, respiratory rate 20, and oxygen saturation was 98%. ABDOMEN: Examination of the abdomen is soft, nontender. No guarding or rigidity. All hernial orifices intact. Bowel sounds normal. NEUROLOGIC: His intake over the last 24 hours was 5200, no output was recorded. LABORATORY DATA: His lab work this morning showed a white cell count was slightly high at 12,000, hemoglobin 14.6, hematocrit 44, MCV 91, and platelet count 232,000. Serum sodium 139, potassium 3.3, chloride 105, bicarbonate 22, anion gap of 12, BUN 5, creatinine 0.8, estimated GFR was 105 mL per minute. His glucose 125, calcium 9.2. Total bilirubin, AST, ALT, alkaline phosphatase were normal. Total protein was 7.2, albumin was 3.8. Serum lipase was 288. ASSESSMENT: Acute pancreatitis, resolved. Acute gastritis, severe abdominal pain, recurrent bouts of nausea and vomiting, resolved. We will start him on a clear liquid diet and advance as tolerated. MARITZA SARABIA MD DR: GUILLERMO/félix JOB#: [id number] / [id number]
== END 2019-05-03 16:42 | disposition home or self-care (01) | DRG 391 ==
LOC: ER 21:42 → 1 SOUTH 23:34
PROVIDERS: ADMIT Internal Medicine; ATTEND Internal Medicine
DX: K29.00 Acute gastritis without bleeding (principal); K85.90 Acute pancreatitis without necrosis or infection, unspecified; E78.5 Hyperlipidemia, unspecified; E87.6 Hypokalemia; F09 Unspecified mental disorder due to known physiological condition; F43.10 Post-traumatic stress disorder, unspecified; I10 Essential (primary) hypertension; J43.9 Emphysema, unspecified; K21.9 Gastro-esophageal reflux disease without esophagitis; M79.7 Fibromyalgia; Z80.8 Family history of malignant neoplasm of other organs or systems; Z82.49 Family history of ischemic heart disease and other diseases of the circulatory system; Z83.3 Family history of diabetes mellitus; F12.90 Cannabis use, unspecified, uncomplicated; F32.9 Major depressive disorder, single episode, unspecified; F41.9 Anxiety disorder, unspecified; M19.90 Unspecified osteoarthritis, unspecified site
CPT/HCPCS: 36415; 74177; 80048; 80053; 80307; 81001; 83615; 83690; 85025; 85027; 87086; 96361; 96374; 96375; C9113; J1170; J1200; J1885; J2060; J2405; J2765; J3490; J7042; Q9967; 99285-25; J7030